=== PATIENT | female | born 1930 | race Caucasian/White ===

== ENCOUNTER 2017-12-12 12:04 | Emergency (ER) | payer MEDICARE ==
[~2017-12-12] VITALS: Ht 162.6 cm; Wt 74.8 kg
[~2017-12-12 12:04] MED LIST: AMLO5 PO; ASPI81CH PO; CALCAVITD PO; CEPH500 PO; CIPDEXSU; CIPR750 PO; DOCU100 PO; DONE10 PO; FENT50TP TOP; FISH1000 PO; GABA300 PO; HYDACE10B; HYDACE5; HYDACE5 PO; Hydrocodone-Ap1 EA23 PO; LEVSOD75 PO; MACUVEX CAPSUL1 EACH PO; METO25 PO; NEOPOLHYDS; ONDA8ODT MM; OXYACE5T PO; PROACE100 PO; PROM25S; VITAMIN D35000 UNI1 PO; Zofran Odt4 MG SL
== END 2017-12-12 13:46 | disposition home or self-care (01) ==
LOC: ER 12:04
DX: S00.411A Abrasion of right ear, initial encounter (principal); H92.21 Otorrhagia, right ear; X58.XXXA Exposure to other specified factors, initial encounter; Z88.2 Allergy status to sulfonamides; Z88.1 Allergy status to other antibiotic agents; Z79.899 Other long term (current) drug therapy; Z79.82 Long term (current) use of aspirin; E03.9 Hypothyroidism, unspecified; I10 Essential (primary) hypertension; G30.9 Alzheimer's disease, unspecified
CPT/HCPCS: 99282

== ENCOUNTER 2017-12-30 20:32 | Emergency (ER) | payer MEDICARE ==
[~2017-12-30] VITALS: Ht 162.6 cm; Wt 64.9 kg
[2017-12-30] MEDS ORDERED: NEOPOLHCSU RIGHTEAR (21:50)
== END 2017-12-30 22:10 | disposition home or self-care (01) ==
LOC: ER 20:32
DX: H60.91 Unspecified otitis externa, right ear (principal); H61.21 Impacted cerumen, right ear; E03.9 Hypothyroidism, unspecified; I10 Essential (primary) hypertension; G30.9 Alzheimer's disease, unspecified; F02.80 Dementia in other diseases classified elsewhere, unspecified severity, without behavioral disturbance, psychotic disturbance, mood disturbance, and anxiety; Z88.2 Allergy status to sulfonamides; Z88.1 Allergy status to other antibiotic agents; Z79.899 Other long term (current) drug therapy; Z79.82 Long term (current) use of aspirin
CPT/HCPCS: 99282